=== PATIENT | female | born 1995 | race Caucasian/White ===

== ENCOUNTER 2025-09-30 17:28 | Emergency (ER) | payer BC ==
[~2025-09-30] VITALS: Ht 162.6 cm; Wt 54.4 kg
[2025-09-30 18:30] LABS: PLATELET COUNT (AUTO) 240 K/uL (150-450); RED BLOOD CELL COUNT(AUTO) 4.54 MIL/uL (4.0-5.2); RED CELL DISTRIBUTION WIDTH 12.9 % (11.5-15.0); WHITE BLOOD COUNT (AUTO) 8.5 K/uL (4.3-11.0)
[2025-09-30 18:41] LABS: CALCIUM, SERUM 9.0 mg/dL (8.5-10.1); CREATININE 0.6 mg/dL (0.6-1.3); SODIUM SERUM 137.0 mmol/L (136-145); UREA NITROGEN, BLOOD 11.0 mg/dL (7-18)
[2025-09-30 19:51] VITALS: BP 140/89; TEMP 98; O2SAT 99
== END 2025-09-30 19:55 | disposition home or self-care (01) ==
LOC: ER 17:43
DX: R07.9 Chest pain, unspecified (principal); F41.9 Anxiety disorder, unspecified
CPT/HCPCS: 36415; 71045-TC; 80048-TC; 85025-TC